=== PATIENT | female | born 2000 | race Caucasian/White ===

== ENCOUNTER 2023-09-21 06:18 | Day surgery (SDC) | payer OTHER, SELFPAY ==
[2023-09-21] VITALS (7 sets, daily range): BP systolic 97–133; BP diastolic 55–89; BMI 37.1
[2023-09-21] MEDS: NORMOSOL-R 1000 IV (08:16)
[2023-09-24 15:46] LABS: Stone Analysis Mass 8 mg
== END 2023-09-21 12:29 | disposition home or self-care (01) ==
LOC: SDS 06:18
PROVIDERS: ATTENDING PHYSICIAN Specialist
DX: N20.1 Calculus of ureter (principal)
CPT/HCPCS: 52356; 74018; 76000; 82365; 87086; C1894